=== PATIENT | male | born 2000 | race Caucasian/White ===

== ENCOUNTER 2025-05-15 17:32 | Emergency (ER) | payer SELFPAY ==
[~2025-05-15] VITALS: Ht 175.3 cm; Wt 114.0 kg
[2025-05-15 17:34] VITALS: O2SAT 98
[2025-05-15 17:36] VITALS: TEMP 37.1; O2SAT 100
[2025-05-15] MEDS: TETANUS, DIPHTHERIA, PERTUSSIS VAC/PF 0.5ML (>10YR OLD) IM ONE (18:37)
[2025-05-15 18:38] VITALS: BP 144/87; PULSE 115; RESP 16
[2025-05-15] MEDS: LIDOCAINE HCL 1% 20ML VIAL INFIL ONE (18:38)
[2025-05-15] MEDS: KETOROLAC 15MG/ML VIAL IM ONE (18:38)
[2025-05-15] MEDS ORDERED: CEPH500T MT (20:46)
== END 2025-05-15 20:50 | disposition home or self-care (01) ==
LOC: ER 17:32
DX: S62.605A Fracture of unspecified phalanx of left ring finger, initial encounter for closed fracture (principal); Z79.899 Other long term (current) drug therapy; X58.XXXA Exposure to other specified factors, initial encounter; Y93.89 Activity, other specified; Y92.89 Other specified places as the place of occurrence of the external cause; Y99.8 Other external cause status
CPT/HCPCS: 73120; 90715; 64450; 90471; 96372; 99284; J1885; J2003; Z7610